=== PATIENT | female | born 2000 | race Hispanic/Latino ===

== ENCOUNTER 2021-09-27 23:31 | Outpatient (CLI) | payer BC ==
[2021-09-28] MEDS ORDERED: LACTATED RINGERS 500 ML IV ONE (00:07)
[2021-09-28 00:42] LABS: Bilirubin,Urine NEG (Negative); Blood,Urine NEG (Negative); Color,Urine Straw (Yellow); Protein,Urine <15 mg/dL mg/dL (Negative); Urobilinogen,Urine < 2.0 mg/dL (<2.0)
[2021-09-28 00:43] LABS: Hematocrit 36.3 % (30.3-42.9); Hemoglobin 12.3 gm/dl (10.1-14.3); Mean Corpuscular HGB Conc 34 % (30-34); Mean Corpuscular Volume 92 fl (79-97); Red Blood Count 3.96 M/mm3 (3.65-5.03); Red Cell Distribution Width 13.5 % (13.2-15.2)
[2021-09-28 00:45] LABS: Bacteria,Urine 4+ /HPF (Negative); Hyaline Casts,Urine 5 /LPF; Platelet Count 93 K/mm3 (140-440)
[2021-09-28 01:02] LABS: Alanine Aminotransferase 13 units/L (7-56)
[2021-09-28 01:07] VITALS: BP 113/59
[2021-09-28 01:17] LABS: Uric Acid 3.1 mg/dL (3.5-7.6)
== END 2021-09-28 01:50 | disposition home or self-care (01) ==
LOC: TRG 23:31 → LD 23:33 → TRG 09-28 01:50
PROVIDERS: ATTEND Obstetrics & Gynecology
DX: O26.893 Other specified pregnancy related conditions, third trimester (principal); R07.81 Pleurodynia; Z3A.34 34 weeks gestation of pregnancy
CPT/HCPCS: 36415; 59025; 81001; 82565; 83615; 84450; 84460; 84550; 85027

== ENCOUNTER 2021-10-14 12:39 | Outpatient (CLI) | payer BC ==
[2021-10-14 13:38] VITALS: BP 121/65
--- NOTE | 2021-10-14 16:49 | Ultrasound Report ---
ULTRASOUND OBSTETRIC LIMITED INDICATION / CLINICAL INFORMATION: well being. TECHNIQUE: Transabdominal ultrasound imaging. COMPARISON: None available. FINDINGS: HEART RATE (beats per minute): 130 AMNIOTIC FLUID INDEX (cm) = 15.5 PRESENTATION: Cephalic. ADDITIONAL FINDINGS: None. IMPRESSION: No significant abnormality. Signer Name: Scott Maloney Jr, MD Signed: 10/14/2021 4:36 PM Workstation Name: [id number]
--- NOTE | 2021-10-14 16:56 | Ultrasound Report ---
ULTRASOUND BIOPHYSICAL PROFILE INDICATION: well being. COMPARISON: None available. FINDINGS: heart rate is 1:30 beats per minute. breathing movement = 2 Gross body movement = 2 tone = 2 Qualitative amniotic fluid volume = 2 IMPRESSION: biophysical profile = 11/09 Signer Name: Scott Maloney Jr, MD Signed: 10/14/2021 4:37 PM Workstation Name: [id number]
== END 2021-10-14 16:00 | disposition home or self-care (01) ==
LOC: TRG 12:39 → APU 12:40 → TRG 16:00
PROVIDERS: ATTEND Obstetrics & Gynecology
DX: Z34.93 Encounter for supervision of normal pregnancy, unspecified, third trimester (principal); Z3A.37 37 weeks gestation of pregnancy
CPT/HCPCS: 76815; 76819

== ENCOUNTER 2021-10-27 20:27 | Inpatient (IN) | payer BC ==
[2021-10-27] MEDS ORDERED: OXYTOCIN DRIP 30 UNITS/500 ML BAG IV SCH ×2 (23:45)
[2021-10-27] MEDS ORDERED: LOPERAMIDE 2 MG CAP PO PRN (23:56)
[2021-10-27] MEDS ORDERED: ONDANSETRON 4 MG/2 ML INJ IV PRN (23:56)
[2021-10-27] MEDS ORDERED: MINERAL OIL 30 ML ORAL LIQD PO PRN (23:56)
[2021-10-27] MEDS ORDERED: TERBUTALINE 1 MG/1 ML INJ SUB-Q PRN (23:56)
[2021-10-27] MEDS ORDERED: OXYTOCIN 10 UNIT/1 ML INJ IM PRN (23:56)
[2021-10-27] MEDS ORDERED: LIDOCAINE (2%) 20 MG/1 ML VIAL 20 ML MDV INFILTRATI ONE (23:56)
[2021-10-27] MEDS ORDERED: PROMETHAZINE 25 MG TAB PO PRN (23:56)
[2021-10-27] MEDS ORDERED: CARBOPROST TROMETHAMINE 250 MCG/1 ML INJ IM PRN (23:56)
[2021-10-27] MEDS ORDERED: miSOPROStol 200 MCG TAB PR PRN (23:56)
[2021-10-27] MEDS ORDERED: ACETAMINOPHEN 325 MG TAB PO PRN (23:56)
[2021-10-27] MEDS ORDERED: NALOXONE 0.4 MG/1 ML INJ IV PRN (23:56)
[2021-10-27] MEDS ORDERED: fentaNYL 100 MCG/2 ML INJ IV PRN (23:56)
[2021-10-27] MEDS ORDERED: METHYLERGONOVINE MALEATE 0.2 MG/ML VIAL IM PRN (23:56)
[2021-10-27] MEDS ORDERED: BUTORPHANOL 2 MG/1 ML INJ IV PRN (23:56)
--- NOTE | 2021-10-28 00:01 | History and Physical Report ---
History of Present Illness Date of examination: 10/28/21 Date of admission: 10/28/2021 Chief complaint: I think my water broke. History of present illness: Pt is a @ 39.1 wks who presented to triage with c/o SROM for clear fluid. She was being followed by [facility] d/t hypothyroidism. Her last growth u/s was on 10/06 @ 36 wks and was the following: Vertex, 5-8 (20%). anterior placenta. Also of note, this , she was diagnosed with thrombocytopenia and was re ferred to a visual aid expert. Her platelet count on admission was 101. She has been as low as 78 this and was started on Prednisone. EDC Confirmation: 11/03/2021 Gestational Age: 39.1 weeks on admission Past History : 1 Term Births: 0 Premature Births: 0 Living Children: 0 Para: 0 Mult. Births: 0 Prev : 0 Prev. attempt? 0 Aborta: 0 Elect. Ab: 0 Spont. Ab: 0 Ectopics: 0 Past Medical History: Reviewed history from 10/10/2018 and no changes required: Asthma Hypothyroidism (02/2018) Past Surgical History: Reviewed history from 03/25/2015 and no changes required: Tonsillectomy (2011) Tubes in ears Family History Summary: Reviewed history Last on 10/10/2018 and no changes required:04/12/2021 Other Family Member - Has No Family History of Ovarvian Cancer - Entered On: 03/25/2015 Other Family Member - Has Family History of Hypertension - Entered On: 03/25/2015 Other Family Member - Has Family History of Diabetes - Entered On: 03/25/2015 Other Family Member - Has Family History of CVA or Stroke - Entered On: 03/25/2015 Other Family Member - Has Family History of Colon Cancer - Entered On: 03/25/2015 Other Family Member - Has Family History of Coronary Heart Disease - Entered On: 03/25/2015 Other Family Member - Has Family History Breast Cancer - Entered On: 03/25/2015 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 Infection History HIV Risk Eval: no Genetic History Congenital Heart Defect: Mom: no Dad: no Nam Disease: Mom: no Dad: no Thalassemia Mom: no Dad: no Neural Tube Defect Mom: no Dad: no Down's Syndrome Mom: no Dad: no Mat-Sachs Mom: no Dad: no Sickle Cell Disease/Trait Mom: no Dad: no Hemophilia Mom: no Dad: no Muscular Dystrophy Mom: no Dad: no Cystic Fibrosis Mom: no Dad: no [place] Chorea Mom: no Dad: no Mental Retardation Mom: no Dad: no Fragile X Mom: no Dad: no Other Genetic/Chromosomal Disorder Mom: no Dad: no Child w/other defect Mom: no Dad: no Current Allergies (reviewed today): No known allergies Past History Past Medical History: asthma, thyroid disease (Hypothyroidism) Past Surgical History: tonsillectomy, other (Tubes in ears) Family/Genetic History: diabetes, hypertension, cancer Social history: no significant social history - Obstetrical History Expected Date of Delivery: 11/03/21 Actual Gestation: 39 Week(s) 1 Day(s) : 1 Para: 0 Hx # Term Pregnancies: 0 Number of Pregnancies: 0 Spontaneous Abortions: 0 Induced : 0 Number of Living Children: 0 Medications and Allergies Allergies Allergy/AdvReac Type Severity Reaction Status Date / Time No Known Allergies Allergy Unverified 09/28/21 00:07 Review of Systems All systems: negative - Vital Signs Vital signs: Vital Signs Temp 98.1 F 10/27/21 21:26 Temp Pulse Resp BP Pulse Ox 98.1 F 90 97 10/27/21 21:26 10/27/21 23:57 10/27/21 23:57 - Physical Exam Cardiovascular: Regular rate Lungs: Positive: Normal air movement Abdomen: Positive: normal appearance, soft Genitourinary (Female): Positive: normal external genitalia, normal perenium Vulva: both: normal Vagina: Positive: other (Clear fluid and yeast like discharge seen at perineum. ) Uterus: Positive: enlarged (Normal for 39 week gestation. ) Extremities: Positive: normal - Obstetrical FHR: category 1 Uterine Contraction Monitor Mode: External Cervical Dilatation: 1 Cervical Effacement Percentage: 50 station: -3 Uterine Contraction Pattern: Regular Uterine Tone Measurement Phase: Resting Uterine Contraction Intensity: Mild Results Result Diagrams: 10/28/21 00:30 Abnormal lab results 10/27/21 Range/Units 21:00 Membranes Rupture Positive A (Negative) All other labs normal. GBS POSITIVE HBsAg Screen Negative Negative *1 RPR Non Reactive Non Reactive *2 Rubella Antibodies, IgG [L] <0.90 index Immune >0.99 *3 Non-immune <0.90 Equivocal 0.90 - 0.99 Immune >0.99 ABO Grouping A *4 Rh Factor Positive *5 Please note: Prior records for this patient's ABO / Rh type are not available for additional verification. Antibody Screen Negative Negative *6 Tests: (2) Thyroid Profile II (601878) TSH 1.080 uIU/mL 0.450-4.500 *31 Thyroxine (T4) [H] 12.1 ug/dL 4.5-12.0 *32 T3 Uptake [L] 22 % 24-39 *33 Free Thyroxine Index 2.7 1.2-4.9 *34 Triiodothyronine (T3) 161 ng/dL 71-180 *35 Tests: (4) HB Solu + Rflx Frac (147327) Hemoglobin (Hgb) Solubility Negative Negative *38 Tests: (5) HIV Ab/p24 Ag with Reflex ([id number]) HIV Ab/p24 Ag Screen Non Reactive Non Reactive *39 HIV Negative HIV-1/HIV-2 antibodies and HIV-1 p24 antigen were NOT detected. There is no laboratory evidence of HIV infection. Tests: (6) HCV Antibody reflex to YASMIN ([id number]) HCV Ab <0.1 s/co ratio 0.0-0.9 *40 Tests: (7) Interpretation: ([id number]) ! Interpretation: SPRCS *41 Negative Not infected with HCV, unless recent infection is suspected or other evidence exists to indicate HCV infection. Assessment and Plan A: 21 y.o. @ 39.1 wks, SROM. Thrombocytopenia, GBS positive, hypothyroidi sm, rubella non-immune. - Patient Problems (1) Rubella non-immune status, antepartum Current Visit: Yes Status: Acute Plan to address problem: Offer vaccine . (2) GBS (group B streptococcus) infection Current Visit: Yes Status: Acute Plan to address problem: Antibiotics ordered. (3) Thrombocytopenia affecting Current Visit: Yes Status: Acute Plan to address problem: Current platelets 101. Anesthesia aware of current platelet count. Will continue to monitor. Monitor bleeding during labor and after delivery. Have uterotonics in room during delivery. (4) with 39 completed weeks gestation Current Visit: Yes Status: Acute Plan to address problem: Admit to labor and delivery. Initiate IV. Draw admission labs. Pain management: IV pain medication and epidural when desired. Initiate augmentation with Pitocin per protocol. (5) Hypothyroidism affecting in third trimester Current Visit: Yes Status: Acute
[2021-10-28] MEDS ORDERED: AMPICILLIN/NS 2 GM/100 ML 2 GM/100 ML BAG IV ONE (00:50)
[2021-10-28 00:58] LABS: Hematocrit 38.7 % (30.3-42.9); Hemoglobin 12.9 gm/dl (10.1-14.3); Mean Corpuscular HGB Conc 33 % (30-34); Mean Corpuscular Volume 93 fl (79-97); Platelet Count 101 K/mm3 (140-440); Red Blood Count 4.17 M/mm3 (3.65-5.03); Red Cell Distribution Width 14.5 % (13.2-15.2)
[2021-10-28] MEDS: LACTATED RINGERS 1,000 ML IV SCH ×2 (02:44→16:04)
[2021-10-28] MEDS ORDERED: ALUM-MAG HYDROXIDE-SIMETHICONE 200-200-20MG/5ML ORAL LIQD 30 ML PO PRN (04:32)
--- NOTE | 2021-10-28 05:47 | Progress Note ---
Assessment and Plan A: 21 y.o. @ 39.1 wks, SROM. Thrombocytopenia, GBS positive, hypothyroidism, rubella non-immune. P: Initiate Pitocin per protocol. Continue with antibiotics. Limit vaginal exams. Monitor maternal temperature. Anticipate . - Patient Problems (1) Rubella non-immune status, antepartum Current Visit: Yes Status: Acute (2) GBS (group B streptococcus) infection Current Visit: Yes Status: Acute (3) Thrombocytopenia affecting Current Visit: Yes Status: Acute (4) with 39 completed weeks gestation Current Visit: Yes Status: Acute (5) Hypothyroidism affecting in third trimester Current Visit: Yes Status: Acute Subjective - Subjective Date of service: 10/28/21 Principal diagnosis: IUP @ 39 + wks, SROM Interval history: Pt doing well. Breathing through contractions. Discussed plan: limited vaginal exams, starting Pitocin, and watching her temperatures. Patient reports: loss of fluid, contractions (Starting to feel some contractions.) Objective - Vital Signs Vital Signs: Vital Signs - 12hr 10/27/21 10/27/21 10/27/21 21:26 21:40 21:45 Temperature 98.1 F Pulse Rate 97 H 91 H Respiratory Rate Blood Pressure Blood Pressure [Right] O2 Sat by Pulse 97 97 Oximetry O2 Sat by Pulse Oximetry [ Bilateral] 10/27/21 10/27/21 10/27/21 21:50 21:55 22:00 Temperature Pulse Rate 102 H 94 H 92 H Respiratory Rate Blood Pressure Blood Pressure [Right] O2 Sat by Pulse 97 97 96 Oximetry O2 Sat by Pulse Oximetry [ Bilateral] 10/27/21 10/27/21 10/27/21 22:05 22:10 22:15 Temperature Pulse Rate 91 H 98 H 102 H Respiratory Rate Blood Pressure Blood Pressure [Right] O2 Sat by Pulse 96 96 96 Oximetry O2 Sat by Pulse Oximetry [ Bilateral] 10/27/21 10/27/21 10/27/21 22:20 22:25 22:30 Temperature Pulse Rate 105 H 101 H 101 H Respiratory Rate Blood Pressure Blood Pressure [Right] O2 Sat by Pulse 96 96 97 Oximetry O2 Sat by Pulse Oximetry [ Bilateral] 10/27/21 10/27/21 10/27/21 22:35 22:40 22:45 Temperature Pulse Rate 99 H 102 H 93 H Respiratory Rate Blood Pressure Blood Pressure [Right] O2 Sat by Pulse 96 96 97 Oximetry O2 Sat by Pulse Oximetry [ Bilateral] 10/27/21 10/27/21 10/27/21 22:50 22:55 23:00 Temperature Pulse Rate 94 H 106 H 91 H Respiratory Rate Blood Pressure Blood Pressure [Right] O2 Sat by Pulse 96 97 97 Oximetry O2 Sat by Pulse Oximetry [ Bilateral] 10/27/21 10/27/21 10/27/21 23:05 23:10 23:15 Temperature Pulse Rate 100 H 101 H 95 H Respiratory Rate Blood Pressure Blood Pressure [Right] O2 Sat by Pulse 96 97 97 Oximetry O2 Sat by Pulse Oximetry [ Bilateral] 10/27/21 10/27/21 10/27/21 23:20 23:25 23:30 Temperature Pulse Rate 103 H 94 H 96 H Respiratory Rate Blood Pressure Blood Pressure [Right] O2 Sat by Pulse 96 97 97 Oximetry O2 Sat by Pulse Oximetry [ Bilateral] 10/27/21 10/27/21 10/27/21 23:35 23:40 23:47 Temperature Pulse Rate 97 H 92 H 107 H Respiratory Rate Blood Pressure Blood Pressure [Right] O2 Sat by Pulse 97 97 97 Oximetry O2 Sat by Pulse Oximetry [ Bilateral] 10/27/21 10/27/21 10/28/21 23:52 23:57 00:02 Temperature Pulse Rate 92 H 90 93 H Respiratory Rate Blood Pressure Blood Pressure [Right] O2 Sat by Pulse 97 97 97 Oximetry O2 Sat by Pulse Oximetry [ Bilateral] 10/28/21 10/28/21 10/28/21 00:07 00:12 00:17 Temperature Pulse Rate 97 H 94 H 86 Respiratory Rate Blood Pressure Blood Pressure [Right] O2 Sat by Pulse 98 97 98 Oximetry O2 Sat by Pulse Oximetry [ Bilateral] 10/28/21 10/28/21 10/28/21 00:22 00:27 00:32 Temperature Pulse Rate 86 94 H 82 Respiratory Rate Blood Pressure Blood Pressure [Right] O2 Sat by Pulse 97 98 97 Oximetry O2 Sat by Pulse Oximetry [ Bilateral] 10/28/21 10/28/21 10/28/21 00:37 00:42 00:47 Temperature Pulse Rate 88 86 91 H Respiratory Rate Blood Pressure Blood Pressure [Right] O2 Sat by Pulse 97 96 97 Oximetry O2 Sat by Pulse Oximetry [ Bilateral] 0710/28/21 10/28/21 00:52 00:57 01:02 Temperature Pulse Rate 90 96 H 88 Respiratory Rate Blood Pressure Blood Pressure [Right] O2 Sat by Pulse 98 97 96 Oximetry O2 Sat by Pulse Oximetry [ Bilateral] 10/28/21 10/28/21 10/28/21 01:07 01:12 01:17 Temperature Pulse Rate 81 81 81 Respiratory Rate Blood Pressure Blood Pressure [Right] O2 Sat by Pulse 96 96 96 Oximetry O2 Sat by Pulse Oximetry [ Bilateral] 10/28/21 10/28/21 10/28/21 01:22 01:27 01:32 Temperature Pulse Rate 79 80 85 Respiratory Rate Blood Pressure Blood Pressure [Right] O2 Sat by Pulse 96 96 96 Oximetry O2 Sat by Pulse Oximetry [ Bilateral] 10/28/21 10/28/21 10/28/21 01:37 01:44 02:14 Temperature Pulse Rate 98 H 85 94 H Respiratory Rate Blood Pressure Blood Pressure [Right] O2 Sat by Pulse 97 97 97 Oximetry O2 Sat by Pulse Oximetry [ Bilateral] 10/28/21 10/28/21 10/28/21 02:19 02:24 02:29 Temperature Pulse Rate 84 94 H 87 Respiratory Rate Blood Pressure Blood Pressure [Right] O2 Sat by Pulse 97 97 97 Oximetry O2 Sat by Pulse Oximetry [ Bilateral] 10/28/21 10/28/21 10/28/21 02:34 02:39 02:44 Temperature Pulse Rate 93 H 90 96 H Respiratory Rate Blood Pressure Blood Pressure [Right] O2 Sat by Pulse 97 97 97 Oximetry O2 Sat by Pulse Oximetry [ Bilateral] 10/28/21 10/28/21 10/28/21 02:45 02:49 02:50 Temperature Pulse Rate 84 88 Respiratory Rate Blood Pressure 113/62 Blood Pressure [Right] O2 Sat by Pulse 96 Oximetry O2 Sat by Pulse 97 Oximetry [ Bilateral] 10/28/21 10/28/21 10/28/21 02:54 02:55 02:59 Temperature 98.7 F Pulse Rate 91 H 94 H 93 H Respiratory 18 Rate Blood Pressure Blood Pressure 113/62 [Right] O2 Sat by Pulse 96 96 96 Oximetry O2 Sat by Pulse Oximetry [ Bilateral] 10/28/21 10/28/21 10/28/21 03:04 03:09 03:14 Temperature Pulse Rate 81 88 83 Respiratory Rate Blood Pressure Blood Pressure [Right] O2 Sat by Pulse 97 97 96 Oximetry O2 Sat by Pulse Oximetry [ Bilateral] 10/28/21 10/28/21 10/28/21 03:19 03:24 03:29 Temperature Pulse Rate 85 93 H 88 Respiratory Rate Blood Pressure Blood Pressure [Right] O2 Sat by Pulse 97 97 96 Oximetry O2 Sat by Pulse Oximetry [ Bilateral] 10/28/21 10/28/21 10/28/21 03:34 03:39 03:44 Temperature Pulse Rate 70 104 H 90 Respiratory Rate Blood Pressure Blood Pressure [Right] O2 Sat by Pulse 97 98 96 Oximetry O2 Sat by Pulse Oximetry [ Bilateral] 10/28/21 10/28/21 10/28/21 03:49 03:54 03:59 Temperature Pulse Rate 95 H 86 90 Respiratory Rate Blood Pressure 111/56 Blood Pressure [Right] O2 Sat by Pulse 96 97 97 Oximetry O2 Sat by Pulse Oximetry [ Bilateral] 10/28/21 10/28/21 10/28/21 04:04 04:09 04:14 Temperature Pulse Rate 85 86 83 Respiratory Rate Blood Pressure Blood Pressure [Right] O2 Sat by Pulse 97 96 96 Oximetry O2 Sat by Pulse Oximetry [ Bilateral] 10/28/21 10/28/21 10/28/21 04:19 04:24 04:29 Temperature Pulse Rate 84 93 H 78 Respiratory Rate Blood Pressure Blood Pressure [Right] O2 Sat by Pulse 97 97 97 Oximetry O2 Sat by Pulse Oximetry [ Bilateral] 10/28/21 10/28/21 10/28/21 04:34 04:39 04:44 Temperature Pulse Rate 84 87 87 Respiratory Rate Blood Pressure Blood Pressure [Right] O2 Sat by Pulse 97 96 97 Oximetry O2 Sat by Pulse Oximetry [ Bilateral] 10/28/21 10/28/21 10/28/21 04:49 04:54 04:59 Temperature Pulse Rate 75 66 71 Respiratory Rate Blood Pressure 91/54 Blood Pressure [Right] O2 Sat by Pulse 97 97 98 Oximetry O2 Sat by Pulse Oximetry [ Bilateral] 10/28/21 10/28/21 10/28/21 05:04 05:09 05:14 Temperature Pulse Rate 70 77 72 Respiratory Rate Blood Pressure Blood Pressure [Right] O2 Sat by Pulse 96 97 97 Oximetry O2 Sat by Pulse Oximetry [ Bilateral] 10/28/21 10/28/2122 05:19 05:24 05:29 Temperature Pulse Rate 81 80 76 Respiratory Rate Blood Pressure Blood Pressure [Right] O2 Sat by Pulse 97 97 97 Oximetry O2 Sat by Pulse Oximetry [ Bilateral] 10/28/21 10/28/21 05:34 05:39 Temperature Pulse Rate 82 78 Respiratory Rate Blood Pressure Blood Pressure [Right] O2 Sat by Pulse 98 97 Oximetry O2 Sat by Pulse Oximetry [ Bilateral] - Exam Cardiovascular: Regular rate Lungs: Normal air movement Abdomen: Present: normal appearance, soft Vulva: both: normal FHR: category 1 Uterine Contraction Monitor Mode: External Cervical Dilatation: 1.5 Cervical Effacement Percentage: 50 station: -2 Uterine Contraction Pattern: Irregular Uterine Tone Measurement Phase: Resting Uterine Contraction Intensity: Mild Extremities: normal - Labs Labs: Abnormal Labs 10/27/21 10/28/21 21:00 00:30 Plt Count 101 L Membranes Rupture Positive A Laboratory Results - last 24 hr 10/27/21 10/28/21 10/28/21 21:00 00:30 00:30 WBC 9.9 RBC 4.17 Hgb 12.9 Hct 38.7 MCV 93 MCH 31 MCHC 33 RDW 14.5 Plt Count 101 L Membranes Rupture Positive A Syphilis IgG/IgM Ab Nonreactive Blood Type Antibody Screen 10/28/21 00:30 WBC RBC Hgb Hct MCV MCH MCHC RDW Plt Count Membranes Rupture Syphilis IgG/IgM Ab Blood Type A POSITIVE Antibody Screen Negative
[2021-10-28] MEDS: AMPICILLIN/NS 1 GM/50 ML 1 GM/50 ML BAG IV SCH ×3 (07:22→22:31)
[2021-10-28] MEDS ORDERED: fentaNYL-BUPIV 2 MCG/ML-0.125% 200 MCG/100 ML BAG EPIDURAL ONE (17:31)
[2021-10-28] MEDS ORDERED: NALOXONE 0.4 MG/1 ML INJ IV PRN (17:37)
[2021-10-28] MEDS ORDERED: ePHEDrine SULFATE 50 MG/1 ML INJ IV PRN (17:37)
--- NOTE | 2021-10-28 17:39 | Anesthesia Consultation ---
Anesthesia Consult and Med Hx Date of service: 10/28/21 - Airway Anesthetic Teeth Evaluation: Poor ROM Head & Neck: Adequate Mental/Hyoid Distance: Adequate Mallampati Class: Class II Intubation Access Assessment: Probably Good - Pulmonary Exam CTA: Yes - Cardiac Exam Cardiac Exam: RRR - Pre-Operative Health Status ASA Pre-Surgery Classification: ASA3 Proposed Anesthetic Plan: Epidural - Pulmonary Hx Smoking: No Hx Asthma: Yes (albuterol PRN, last used last week) COPD: No Hx Pneumonia: No - Cardiovascular System Hx Hypertension: No - Central Nervous System Hx Seizures: No Hx Back Pain: Yes Hx Psychiatric Problems: No - Endocrine Hx Renal Disease: No Hx End Stage Renal Disease: No Hx Hypothyroidism: Yes Hx Hyperthyroidism: No - Hematic Hx Anemia: Yes (thrambocytopenia in ) Hx Sickle Cell Disease: No - Other Systems Hx Alcohol Use: No Hx Substance Use: No Hx Obesity: No
--- NOTE | 2021-10-28 17:43 | Progress Note ---
Labor Epidural - Labor Epidural Start Time: 17:03 Stop Time: 17:13 Performed by:: JOAO LOCKHART Procedure: Patient is requesting epidural for labor pain. H&P and labs reviewed. Procedure explained, questions answered, consent obtained. Patient placed in sitting position with monitors applied. Timeout performed immediately before start of procedure. Prep/drape in usual sterile fashion. Skin localized 3 mL 1% lidocaine at L[3]-L[4] interspace. 17-gauge Touhy epidural needle advanced to LUCILA with saline at [7] cm x 1 attempt. No blood/CSF noted via epidural needle. Epidural catheter advanced to [14] cm. Negative aspiration for blood and CSF via catheter, negative response to test dose 3 ml 1.5% lidocaine w/ Epi. Sterile dressing applied followed by tape reinforcement. Patient tolerated procedure well. No immediate complications noted.
[2021-10-28] MEDS ORDERED: fentaNYL-BUPIV 2 MCG/ML-0.125% 200 MCG/100 ML BAG EPIDURAL SCH (18:00)
[2021-10-28] MEDS: ePHEDrine SULFATE 50 MG/1 ML INJ IV PRN ×2 (18:06→18:13)
--- NOTE | 2021-10-28 19:18 | Event Note ---
Date: 10/28/21 Pt noted to have early and variblbe decels. Epidural in place and pt comfortable. No s/sx of choris with prolonged ROM at this time at 24 hr nearly. Cx 4/100/0 with ISE and IUPC placed w/o difficulty. Some blood flash back noted in IUPC cath and cath flushed. Pt and baby tolerated placement well. With correction of blood pressure there is resolution of the variable and pt now having early decels. Head is well applied to the cervix.
--- NOTE | 2021-10-28 21:22 | Progress Note ---
Assessment and Plan A: 21 y.o. @ 39.1 wks, active labor. P: Continue with Pitocin per protocol. Position changes as needed. Anticipate . - Patient Problems (1) Rubella non-immune status, antepartum Current Visit: Yes Status: Acute (2) GBS (group B streptococcus) infection Current Visit: Yes Status: Acute (3) Thrombocytopenia affecting Current Visit: Yes Status: Acute (4) with 39 completed weeks gestation Current Visit: Yes Status: Acute (5) Hypothyroidism affecting in third trimester Current Visit: Yes Status: Acute Subjective - Subjective Date of service: 10/28/21 Principal diagnosis: IUP @ 39.1 wks, SROM, active labor Interval history: Pt comfortable with epidural. Patient reports: loss of fluid, vaginal bleeding, movement normal, no new complaints, no contractions Objective - Vital Signs Vital Signs: Vital Signs - 12hr 10/28/21 10/28/21 10/28/21 09:24 09:29 09:34 Temperature Pulse Rate 95 H 93 H 89 Respiratory Rate Blood Pressure O2 Sat by Pulse 98 98 98 Oximetry O2 Sat by Pulse Oximetry [ Bilateral] 10/28/21 10/28/21 10/28/21 09:39 09:44 09:49 Temperature Pulse Rate 100 H 94 H 97 H Respiratory Rate Blood Pressure O2 Sat by Pulse 98 98 98 Oximetry O2 Sat by Pulse Oximetry [ Bilateral] 10/28/21 10/28/21 10/28/21 09:54 09:59 10:04 Temperature Pulse Rate 98 H 111 H 94 H Respiratory Rate Blood Pressure 120/60 O2 Sat by Pulse 98 98 98 Oximetry O2 Sat by Pulse Oximetry [ Bilateral] 10/28/21 10/28/21 10/28/21 10:09 10:14 10:19 Temperature Pulse Rate 88 93 H 105 H Respiratory Rate Blood Pressure O2 Sat by Pulse 97 98 98 Oximetry O2 Sat by Pulse Oximetry [ Bilateral] 10/28/21 10/28/21 10/28/21 10:24 10:29 10:34 Temperature Pulse Rate 85 85 90 Respiratory Rate Blood Pressure O2 Sat by Pulse 97 97 98 Oximetry O2 Sat by Pulse Oximetry [ Bilateral] 10/28/21 10/28/21 10/28/21 10:39 10:44 10:49 Temperature Pulse Rate 98 H 84 86 Respiratory Rate Blood Pressure O2 Sat by Pulse 97 97 97 Oximetry O2 Sat by Pulse Oximetry [ Bilateral] 10/28/21 10/28/21 10/28/21 10:54 10:59 11:00 Temperature Pulse Rate 81 93 H 95 H Respiratory Rate Blood Pressure 118/57 O2 Sat by Pulse 96 98 Oximetry O2 Sat by Pulse Oximetry [ Bilateral] 10/28/21 10/28/21 10/28/21 11:06 11:09 11:11 Temperature 98.1 F Pulse Rate 91 H 85 86 Respiratory 18 Rate Blood Pressure 119/58 O2 Sat by Pulse 93 97 97 Oximetry O2 Sat by Pulse Oximetry [ Bilateral] 10/28/21 10/28/21 10/28/21 11:16 11:21 11:26 Temperature Pulse Rate 76 81 84 Respiratory Rate Blood Pressure O2 Sat by Pulse 97 98 98 Oximetry O2 Sat by Pulse Oximetry [ Bilateral] 10/28/21 10/28/21 10/28/21 11:31 11:36 11:39 Temperature Pulse Rate 86 80 78 Respiratory Rate Blood Pressure 119/58 O2 Sat by Pulse 98 97 Oximetry O2 Sat by Pulse Oximetry [ Bilateral] 10/28/21 10/28/21 10/28/21 11:41 11:46 11:51 Temperature Pulse Rate 86 84 82 Respiratory Rate Blood Pressure O2 Sat by Pulse 98 99 98 Oximetry O2 Sat by Pulse Oximetry [ Bilateral] 10/28/21 10/28/21 10/28/21 11:56 12:01 12:06 Temperature Pulse Rate 95 H 106 H 90 Respiratory Rate Blood Pressure O2 Sat by Pulse 99 99 98 Oximetry O2 Sat by Pulse Oximetry [ Bilateral] 10/28/21 10/28/21 10/28/21 12:11 12:16 12:21 Temperature Pulse Rate 92 H 86 104 H Respiratory Rate Blood Pressure 110/63 O2 Sat by Pulse 98 98 97 Oximetry O2 Sat by Pulse Oximetry [ Bilateral] 10/28/21 10/28/21 10/28/21 12:26 12:31 12:36 Temperature Pulse Rate 104 H 89 92 H Respiratory Rate Blood Pressure O2 Sat by Pulse 97 97 98 Oximetry O2 Sat by Pulse Oximetry [ Bilateral] 10/28/21 10/28/21 10/28/21 12:41 12:46 12:51 Temperature Pulse Rate 87 86 97 H Respiratory Rate Blood Pressure 134/68 O2 Sat by Pulse 98 98 98 Oximetry O2 Sat by Pulse Oximetry [ Bilateral] 10/28/21 10/28/21 10/28/21 12:56 13:01 13:06 Temperature Pulse Rate 84 86 75 Respiratory Rate Blood Pressure O2 Sat by Pulse 98 98 97 Oximetry O2 Sat by Pulse Oximetry [ Bilateral] 10/28/21 10/28/21 10/28/21 13:10 13:11 13:16 Temperature Pulse Rate 81 84 80 Respiratory Rate Blood Pressure 116/58 O2 Sat by Pulse 98 97 Oximetry O2 Sat by Pulse Oximetry [ Bilateral] 10/28/21 10/28/21 10/28/21 13:21 13:26 13:31 Temperature Pulse Rate 83 82 81 Respiratory Rate Blood Pressure O2 Sat by Pulse 97 98 98 Oximetry O2 Sat by Pulse Oximetry [ Bilateral] 10/28/21 10/28/21 10/28/21 13:36 13:40 13:41 Temperature Pulse Rate 97 H 83 87 Respiratory Rate Blood Pressure 116/69 O2 Sat by Pulse 98 98 Oximetry O2 Sat by Pulse Oximetry [ Bilateral] 10/28/21 10/28/21 10/28/21 13:46 13:51 13:56 Temperature Pulse Rate 91 H 94 H 104 H Respiratory Rate Blood Pressure O2 Sat by Pulse 97 100 98 Oximetry O2 Sat by Pulse Oximetry [ Bilateral] 10/28/21 10/28/21 10/28/21 14:01 14:06 14:11 Temperature Pulse Rate 89 75 84 Respiratory Rate Blood Pressure O2 Sat by Pulse 99 99 99 Oximetry O2 Sat by Pulse Oximetry [ Bilateral] 10/28/21 10/28/21 10/28/21 14:12 14:16 14:21 Temperature Pulse Rate 81 83 78 Respiratory Rate Blood Pressure 120/59 O2 Sat by Pulse 98 99 Oximetry O2 Sat by Pulse Oximetry [ Bilateral] 10/28/21 10/28/21 10/28/21 14:26 14:31 14:36 Temperature Pulse Rate 90 67 66 Respiratory Rate Blood Pressure O2 Sat by Pulse 95 95 96 Oximetry O2 Sat by Pulse Oximetry [ Bilateral] 10/28/21 10/28/21 10/28/21 14:38 14:41 14:46 Temperature Pulse Rate 92 H 102 H Respiratory Rate Blood Pressure 101/53 O2 Sat by Pulse 95 98 Oximetry O2 Sat by Pulse 98 Oximetry [ Bilateral] 10/28/21 10/28/21 10/28/21 14:51 14:56 15:01 Temperature Pulse Rate 69 74 84 Respiratory Rate Blood Pressure O2 Sat by Pulse 98 97 98 Oximetry O2 Sat by Pulse Oximetry [ Bilateral] 10/28/21 10/28/21 10/28/21 15:06 15:10 15:11 Temperature Pulse Rate 65 75 82 Respiratory Rate Blood Pressure 128/57 O2 Sat by Pulse 97 97 Oximetry O2 Sat by Pulse Oximetry [ Bilateral] 10/28/21 10/28/21 10/28/21 15:16 15:19 15:21 Temperature Pulse Rate 82 74 85 Respiratory Rate Blood Pressure O2 Sat by Pulse 98 94 98 Oximetry O2 Sat by Pulse Oximetry [ Bilateral] 10/28/21 10/28/21 10/28/21 15:26 15:31 15:36 Temperature Pulse Rate 78 84 79 Respiratory Rate Blood Pressure O2 Sat by Pulse 98 97 98 Oximetry O2 Sat by Pulse Oximetry [ Bilateral] 10/28/21 10/28/21 10/28/21 15:39 15:41 15:46 Temperature Pulse Rate 84 93 H 87 Respiratory Rate Blood Pressure 109/76 O2 Sat by Pulse 99 100 Oximetry O2 Sat by Pulse Oximetry [ Bilateral] 10/28/21 10/28/21 10/28/21 15:51 15:56 16:01 Temperature Pulse Rate 78 100 H 73 Respiratory Rate Blood Pressure O2 Sat by Pulse 100 98 98 Oximetry O2 Sat by Pulse Oximetry [ Bilateral] 10/28/21 10/28/21 10/28/21 16:02 16:06 16:10 Temperature Pulse Rate 80 74 72 Respiratory Rate Blood Pressure 122/79 O2 Sat by Pulse 93 100 Oximetry O2 Sat by Pulse Oximetry [ Bilateral] 10/28/21 10/28/21 10/28/21 16:11 16:16 16:21 Temperature Pulse Rate 97 H 82 87 Respiratory Rate Blood Pressure O2 Sat by Pulse 100 99 99 Oximetry O2 Sat by Pulse Oximetry [ Bilateral] 10/28/21 10/28/21 10/28/21 16:25 16:26 16:31 Temperature Pulse Rate 59 L 85 98 H Respiratory Rate Blood Pressure O2 Sat by Pulse 94 99 93 Oximetry O2 Sat by Pulse Oximetry [ Bilateral] 10/28/21 10/28/21 10/28/21 16:36 16:39 16:41 Temperature Pulse Rate 78 64 87 Respiratory Rate Blood Pressure 113/57 O2 Sat by Pulse 99 97 Oximetry O2 Sat by Pulse Oximetry [ Bilateral] 10/28/21 10/28/21 10/28/21 16:46 16:51 16:56 Temperature Pulse Rate 92 H 96 H 93 H Respiratory Rate Blood Pressure O2 Sat by Pulse 100 98 100 Oximetry O2 Sat by Pulse Oximetry [ Bilateral] 10/28/21 10/28/21 10/28/21 17:01 17:02 17:06 Temperature Pulse Rate 85 89 87 Respiratory Rate Blood Pressure 216/86 O2 Sat by Pulse 99 100 Oximetry O2 Sat by Pulse Oximetry [ Bilateral] 10/28/21 10/28/21 10/28/21 17:09 17:11 17:12 Temperature Pulse Rate 81 80 78 Respiratory Rate Blood Pressure 120/64 118/65 O2 Sat by Pulse 95 Oximetry O2 Sat by Pulse Oximetry [ Bilateral] 10/28/21 10/28/21 10/28/21 17:16 17:18 17:21 Temperature Pulse Rate 85 74 69 Respiratory Rate Blood Pressure 112/53 O2 Sat by Pulse 98 99 Oximetry O2 Sat by Pulse Oximetry [ Bilateral] 10/28/21 10/28/21 10/28/21 17:22 17:26 17:27 Temperature Pulse Rate 73 87 86 Respiratory Rate Blood Pressure 109/51 101/52 O2 Sat by Pulse 99 Oximetry O2 Sat by Pulse Oximetry [ Bilateral] 10/28/21 10/28/21 10/28/21 17:31 17:33 17:36 Temperature Pulse Rate 78 78 85 Respiratory Rate Blood Pressure 96/54 O2 Sat by Pulse 98 98 Oximetry O2 Sat by Pulse Oximetry [ Bilateral] 10/28/21 10/28/21 10/28/21 17:38 17:41 17:44 Temperature Pulse Rate 75 75 73 Respiratory Rate Blood Pressure 100/48 98/48 O2 Sat by Pulse 98 Oximetry O2 Sat by Pulse Oximetry [ Bilateral] 10/28/21 10/28/21 10/28/21 17:46 17:48 17:51 Temperature Pulse Rate 79 73 82 Respiratory Rate Blood Pressure 95/53 O2 Sat by Pulse 100 100 Oximetry O2 Sat by Pulse Oximetry [ Bilateral] 10/28/21 10/28/21 10/28/21 17:52 17:53 17:56 Temperature Pulse Rate 68 79 Respiratory 18 Rate Blood Pressure 93/51 93/51 O2 Sat by Pulse 100 Oximetry O2 Sat by Pulse Oximetry [ Bilateral] 10/28/21 10/28/21 10/28/21 17:57 18:00 18:01 Temperature Pulse Rate 72 78 78 Respiratory Rate Blood Pressure 90/53 O2 Sat by Pulse 93 99 Oximetry O2 Sat by Pulse Oximetry [ Bilateral] 10/28/21 10/28/21 10/28/21 18:02 18:06 18:07 Temperature Pulse Rate 78 75 73 Respiratory Rate Blood Pressure 96/45 99/49 O2 Sat by Pulse 100 Oximetry O2 Sat by Pulse Oximetry [ Bilateral] 10/28/21 10/28/21 10/28/21 18:11 18:12 18:15 Temperature Pulse Rate 81 74 78 Respiratory Rate Blood Pressure 101/49 O2 Sat by Pulse 99 94 Oximetry O2 Sat by Pulse Oximetry [ Bilateral] 10/28/21 10/28/21 10/28/21 18:16 18:21 18:22 Temperature 97.8 F Pulse Rate 76 77 77 Respiratory 20 Rate Blood Pressure 120/50 O2 Sat by Pulse 96 98 Oximetry O2 Sat by Pulse Oximetry [ Bilateral] 10/28/21 10/28/21 10/28/21 18:26 18:29 18:31 Temperature Pulse Rate 83 77 76 Respiratory Rate Blood Pressure 107/47 O2 Sat by Pulse 99 99 Oximetry O2 Sat by Pulse Oximetry [ Bilateral] 10/28/21 10/28/21 10/28/21 18:32 18:36 18:38 Temperature Pulse Rate 75 78 83 Respiratory Rate Blood Pressure 95/49 94/45 O2 Sat by Pulse 100 Oximetry O2 Sat by Pulse Oximetry [ Bilateral] 10/28/21 10/28/21 10/28/21 18:41 18:43 18:46 Temperature Pulse Rate 79 89 85 Respiratory Rate Blood Pressure 105/51 O2 Sat by Pulse 99 100 Oximetry O2 Sat by Pulse Oximetry [ Bilateral] 10/28/21 10/28/21 10/28/21 18:48 18:51 18:52 Temperature Pulse Rate 84 92 H 88 Respiratory Rate Blood Pressure 108/51 105/53 O2 Sat by Pulse 99 Oximetry O2 Sat by Pulse Oximetry [ Bilateral] 10/28/21 10/28/21 10/28/21 18:56 18:57 19:01 Temperature Pulse Rate 77 83 92 H Respiratory Rate Blood Pressure 102/53 O2 Sat by Pulse 100 100 Oximetry O2 Sat by Pulse Oximetry [ Bilateral] 10/28/21 10/28/21 10/28/21 19:02 19:06 19:07 Temperature Pulse Rate 83 91 H 82 Respiratory Rate Blood Pressure 99/55 95/55 O2 Sat by Pulse 100 Oximetry O2 Sat by Pulse Oximetry [ Bilateral] 10/28/21 10/28/21 10/28/21 19:11 19:12 19:16 Temperature Pulse Rate 79 75 84 Respiratory Rate Blood Pressure 98/53 O2 Sat by Pulse 100 100 Oximetry O2 Sat by Pulse Oximetry [ Bilateral] 10/28/21 10/28/21 10/28/21 19:18 19:21 19:22 Temperature Pulse Rate 75 86 77 Respiratory Rate Blood Pressure 102/55 96/50 O2 Sat by Pulse 98 Oximetry O2 Sat by Pulse Oximetry [ Bilateral] 10/28/21 10/28/21 10/28/21 19:26 19:28 19:31 Temperature Pulse Rate 89 79 81 Respiratory Rate Blood Pressure 103/59 O2 Sat by Pulse 100 100 Oximetry O2 Sat by Pulse Oximetry [ Bilateral] 10/28/21 10/28/21 10/28/21 19:32 19:33 19:36 Temperature Pulse Rate 81 85 86 Respiratory Rate Blood Pressure 106/58 O2 Sat by Pulse 86 99 Oximetry O2 Sat by Pulse Oximetry [ Bilateral] 10/28/21 10/28/21 10/28/21 19:38 19:41 19:42 Temperature 98.7 F Pulse Rate 96 H 86 89 Respiratory Rate Blood Pressure 104/54 106/53 O2 Sat by Pulse 90 100 Oximetry O2 Sat by Pulse 99 Oximetry [ Bilateral] 10/28/21 10/28/21 10/28/21 19:46 19:48 19:51 Temperature Pulse Rate 82 90 85 Respiratory Rate Blood Pressure O2 Sat by Pulse 100 86 91 Oximetry O2 Sat by Pulse Oximetry [ Bilateral] 10/28/21 10/28/21 10/28/21 19:56 19:58 20:01 Temperature Pulse Rate 86 82 81 Respiratory Rate Blood Pressure 94/53 O2 Sat by Pulse 92 100 Oximetry O2 Sat by Pulse Oximetry [ Bilateral] 10/28/21 10/28/21 10/28/21 20:06 20:11 20:14 Temperature Pulse Rate 67 83 75 Respiratory Rate Blood Pressure 97/53 O2 Sat by Pulse 100 100 Oximetry O2 Sat by Pulse Oximetry [ Bilateral] 10/28/21 10/28/21 10/28/21 20:16 20:21 20:23 Temperature Pulse Rate 82 70 76 Respiratory Rate Blood Pressure O2 Sat by Pulse 79 L 100 94 Oximetry O2 Sat by Pulse Oximetry [ Bilateral] 10/28/21 10/28/21 10/28/21 20:26 20:28 20:31 Temperature Pulse Rate 88 89 79 Respiratory Rate Blood Pressure 100/55 O2 Sat by Pulse 100 100 Oximetry O2 Sat by Pulse Oximetry [ Bilateral] 10/28/21 10/28/21 10/28/21 20:35 20:36 20:41 Temperature Pulse Rate 78 90 87 Respiratory Rate Blood Pressure O2 Sat by Pulse 85 84 99 Oximetry O2 Sat by Pulse Oximetry [ Bilateral] 10/28/21 10/28/21 10/28/21 20:43 20:44 20:46 Temperature Pulse Rate 92 H 85 81 Respiratory Rate Blood Pressure 98/52 O2 Sat by Pulse 80 L 99 Oximetry O2 Sat by Pulse Oximetry [ Bilateral] 10/28/21 10/28/21 10/28/21 20:51 20:56 20:58 Temperature Pulse Rate 81 77 74 Respiratory Rate Blood Pressure 95/54 O2 Sat by Pulse 99 99 Oximetry O2 Sat by Pulse Oximetry [ Bilateral] 10/28/21 10/28/21 10/28/21 21:01 21:03 21:06 Temperature Pulse Rate 75 84 86 Respiratory Rate Blood Pressure O2 Sat by Pulse 98 83 L 94 Oximetry O2 Sat by Pulse Oximetry [ Bilateral] 10/28/21 10/28/21 10/28/21 21:08 21:11 21:13 Temperature Pulse Rate 91 H 92 H 106 H Respiratory Rate Blood Pressure 100/64 O2 Sat by Pulse 81 L 100 Oximetry O2 Sat by Pulse Oximetry [ Bilateral] 10/28/21 21:16 Temperature Pulse Rate 103 H Respiratory Rate Blood Pressure O2 Sat by Pulse 100 Oximetry O2 Sat by Pulse Oximetry [ Bilateral] - Exam Narrative Exam: Bloody show noted. Pt positioned in high fowlers. Pt remains afebrile. Cardiovascular: Regular rate Lungs: Normal air movement Abdomen: Present: normal appearance Vulva: both: normal Uterus: Present: normal FHR: category 1 (Some periods of category 2 with variables. ) Uterine Contraction Monitor Mode: Internal Cervical Dilatation: 7 Cervical Effacement Percentage: 100 station: 0 Extremities: normal - Labs Labs: Abnormal Labs 10/27/21 10/28/21 21:00 00:30 Plt Count 101 L Membranes Rupture Positive A Laboratory Results - last 24 hr 10/27/21 10/28/21 10/28/21 21:00 00:30 00:30 WBC 9.9 RBC 4.17 Hgb 12.9 Hct 38.7 MCV 93 MCH 31 MCHC 33 RDW 14.5 Plt Count 101 L Membranes Rupture Positive A Syphilis IgG/IgM Ab Nonreactive SARS-CoV-2 (PCR) Blood Type Antibody Screen 10/28/21 10/28/21 00:30 09:48 WBC RBC Hgb Hct MCV MCH MCHC RDW Plt Count Membranes Rupture Syphilis IgG/IgM Ab SARS-CoV-2 (PCR) Negative Blood Type A POSITIVE Antibody Screen Negative
[2021-10-29] MEDS: AMPICILLIN/NS 1 GM/50 ML 1 GM/50 ML BAG IV SCH (02:30)
--- NOTE | 2021-10-29 03:38 | Procedure Note ---
OB Delivery Note - Delivery Date of Delivery: 10/29/21 Utility Assembler: ADAM GARCIA Estimated blood loss: 300cc - Vaginal Delivery presentation: vertex Delivery position: OA Intrapartum events: PROM->1hr before delivery, prolonged labor- > = 20hr, mult. late decelerations, mult.variable deceleratio Delivery augmentation: pitocin Delivery monitor: external FHT, external uterine, internal FHT, internal uterine Route of delivery: Delivery placenta: spontaneous Delivery cord: nuchal cord (X1), 3 umbilical vessels, other (Abnormal cord insertion, sent to pathology) Episiotomy: none Delivery laceration: 1st degree (hemostatic, no repair needed) Anesthesia: epidural Delivery comments: of viable female infant. Nuchal cord X1, easily reduced. to mother's abdomen for skin to skin. Cord clamped after cessation of pulse. Cut by FOC. Spontaneous delivery of placenta, intact, complete, 3 vessels noted. Abnormal cord insertion noted. Placenta sent to pathology. Some brisk bleeding after delivery of placenta. Bleeding stopped with Pitocin and Methergine. Fundus firm, minimal bleeding noted. Apgars 8,9. Infant weight, 7- 0. Sponges and instruments counted with RN X2 correct X2. and mother left in stable condition in care of RN. - Infant A at 1 minute: 8 at 5 minutes: 9 Gender: Female ("Nataliya", 7-0)
[2021-10-29] MEDS ORDERED: MAGNESIUM HYDROXIDE (MOM) ORAL LIQD UDC PO PRN (03:46)
[2021-10-29] MEDS ORDERED: diphenhydrAMINE 25 MG CAP PO PRN (03:46)
[2021-10-29] MEDS ORDERED: WITCH HAZEL/ GLYCERIN PAD TP PRN (03:46)
[2021-10-29] MEDS ORDERED: oxyCODONE /ACETAMINOPHEN 5-325MG TAB PO PRN (03:46)
[2021-10-29] MEDS ORDERED: PROMETHAZINE 25 MG TAB PO PRN (03:46)
[2021-10-29] MEDS ORDERED: miSOPROStol 100 MCG TAB PR PRN (03:46)
[2021-10-29] MEDS ORDERED: PROMETHAZINE 25 MG RECT SUPP PR PRN (03:46)
[2021-10-29] MEDS ORDERED: ONDANSETRON 4 MG/2 ML INJ IV PRN (03:46)
[2021-10-29] MEDS ORDERED: BENZOCAINE/MENTHOL 20/0.5% TOP SPRAY 56 GM TP PRN (03:46)
[2021-10-29] MEDS ORDERED: LANOLIN/ZINC/DIMETHICONE (LANSINOH) 7 GM TP PRN ×2 (03:46)
[2021-10-29] MEDS ORDERED: OXYTOCIN DRIP 30 UNITS/500 ML BAG IV SCH (04:00)
[2021-10-29] MEDS: IBUPROFEN 800 MG TAB PO SCH ×3 (04:30→16:05)
[2021-10-29 06:44] LABS: Hematocrit 39.7 % (30.3-42.9); Hemoglobin 13.4 gm/dl (10.1-14.3); Mean Corpuscular HGB Conc 34 % (30-34); Mean Corpuscular Volume 93 fl (79-97); Red Blood Count 4.27 M/mm3 (3.65-5.03); Red Cell Distribution Width 14.6 % (13.2-15.2)
[2021-10-29 06:47] LABS: Platelet Count 80 K/mm3 (140-440)
--- NOTE | 2021-10-29 06:55 | Event Note ---
Date: 10/29/21 (Platelet Count) Pt with thrombocytopenia. Per conversation with anesthesia CBC obtained 2 hours after delivery. Platelet count this AM 80. Spoke with Yaz regarding removal of epidural. She will come and remove epidural. Pt doing well post delivery. Bleeding is light and fundus is firm. Will continue with care, watch vaginal bleeding. Anticipate discharge home on 10/30.
[2021-10-29] MEDS: PRENATAL VIT27-FE FUMARATE-FOLIC ACID VIT TAB PO SCH (10:26)
[2021-10-29] MEDS: DOCUSATE SODIUM 100 MG CAP PO SCH ×2 (10:26→21:50)
--- NOTE | 2021-10-29 11:17 | Post Anesthesia Evaluation ---
- Post Anesthesia Evaluation Patient Participated: Yes Airway Patent: Yes Stable Respiratory Function: Yes Nausea/Vomiting: No Temp > 96.8F: Yes Pain Manageable: Yes Adequeate Hydration: Yes Anesthesia Complications: No Block Receding Appropriately: Yes Patient on Ventilator: No
[2021-10-29] MEDS: ACETAMINOPHEN 500 MG TAB PO PRN (21:50)
--- NOTE | 2021-10-30 05:59 | Discharge Summary ---
Providers - Providers Date of Admission: 10/28/21 02:15 Date of discharge: 10/30/21 Attending physician: BERNADETTE ROBERTSON MD 10/29/21 03:50 Consult to Rigger Supervisor [CONS] Routine Reason For Exam: Primary care physician: KRISTEN WISDOM Hospitalization Reason for admission: active labor Delivery: Laceration: 1st degree (hemostatic, no repair needed. ) Other procedures: none complications: none Discharge diagnosis: IUP at term delivered [place] baby: female Pertinent studies: Discussed with patient, d/t thrombocytopenia (diagnosed during ) she will need to watch her bleeding at home. We discussed should she have heavy bleeding, and soaks through a pad an hour she will need to come to the ER immediately for evaluation. Pt verbalized understanding. Hospital course: S: Pt doing well. Ambulating, voiding, and passing flatus okay. BC: Undecided. O: VSS. Adequate I&O's. H/H 11.0/34.0. Fundus firm, minimal bleeding noted. A: 21 y.o. s/p . In good condition . P: Discharge home with instructions. Pt to schedule visit in the office in 1 week. Condition at discharge: Good Disposition: 01 HOME / SELF CARE / HOMELESS Plan - Provider Discharge Summary Activity: routine, no sex for 6 weeks, no heavy lifting 4 weeks, no strenuous exercise Diet: routine Instructions: routine Additional instructions: [] Smoking cessation referral if applicable(refer to patient education folder for contact #) [] Refer to [facility] Book[facility] Call your doctor immediately for: * Fever > 100.5 * Heavy vaginal bleeding ( >1 pad per hour) * Severe persistent headache * Shortness of breath * Reddened, hot, painful area to leg or breast * Drainage or odor from vaginal tear. - Follow up plan Follow up: KRISTEN WISDOM MD [Primary Care Provider] - 7 Days (- Congratulations on the of your baby girl!! - Thank you for allowing us to take care of you! - Please schedule your visit in the office in 4 weeks. - Should you have any questions or concerns after discharge, please do not hesitate to call the office at . )
[2021-10-30] MEDS ORDERED: TETANUS,DIPH,PERTUSS(ACELL) VACCINE 0.5 ML SYRINGE IM ONE (06:00)
[2021-10-30] MEDS ORDERED: MEASLES, MUMPS & RUBELLA 12,500 UNIT/0.5 ML VACCINE SUB-Q ONE (06:00)
[2021-10-30] MEDS: ACETAMINOPHEN 500 MG TAB PO PRN ×2 (06:27→16:38)
[2021-10-30] MEDS: PRENATAL VIT27-FE FUMARATE-FOLIC ACID VIT TAB PO SCH (10:10)
[2021-10-30] MEDS: DOCUSATE SODIUM 100 MG CAP PO SCH (10:10)
[2021-10-30 19:14] VITALS: BP 113/56
== END 2021-10-30 16:52 | disposition home or self-care (01) | DRG 806 ==
LOC: TRG 20:27 → APU 21:36 → TRG 10-28 02:13 → LD 10-28 02:15 → OB 10-29 06:00
PROVIDERS: ADMIT Student in an Organized Health Care Education/Training Program; ATTEND Student in an Organized Health Care Education/Training Program
PROC: 10E0XZZ Delivery of Products of Conception, External Approach (ICD-10-PCS; principal; 2021-10-29)
PROC: 3E0R3BZ Introduction of Anesthetic Agent into Spinal Canal, Percutaneous Approach (ICD-10-PCS; 2021-10-29)
PROC: 00HU33Z Insertion of Infusion Device into Spinal Canal, Percutaneous Approach (ICD-10-PCS; 2021-10-29)
PROC: 10H07YZ Insertion of Other Device into Products of Conception, Via Natural or Artificial Opening (ICD-10-PCS; 2021-10-29)
PROC: 3E0234Z Introduction of Serum, Toxoid and Vaccine into Muscle, Percutaneous Approach (ICD-10-PCS; 2021-10-30)
DX: O99.12 Other diseases of the blood and blood-forming organs and certain disorders involving the immune mechanism complicating childbirth (principal); O98.82 Other maternal infectious and parasitic diseases complicating childbirth; Z37.0 Single live birth; O76 Abnormality in fetal heart rate and rhythm complicating labor and delivery; O63.9 Long labor, unspecified; Z3A.39 39 weeks gestation of pregnancy; Z20.822 Contact with and (suspected) exposure to COVID-19; Z23 Encounter for immunization; O99.284 Endocrine, nutritional and metabolic diseases complicating childbirth; E03.9 Hypothyroidism, unspecified; O99.52 Diseases of the respiratory system complicating childbirth; J45.909 Unspecified asthma, uncomplicated; D69.6 Thrombocytopenia, unspecified; B95.1 Streptococcus, group B, as the cause of diseases classified elsewhere; O42.02 Full-term premature rupture of membranes, onset of labor within 24 hours of rupture; O69.81X0 Labor and delivery complicated by cord around neck, without compression, not applicable or unspecified; O70.0 First degree perineal laceration during delivery
CPT/HCPCS: 36415; 84112; 85014; 85018; 85027; 86592; 86850; 86900; 86901; 88307; 96360; 96365; 96366; G0378; J3490; J0290; J0595; J2210; J2590; J3010; J7120; U0003